=== PATIENT | male | born 1945 | race Caucasian/White ===

== ENCOUNTER 2020-11-12 17:54 | Emergency (ER) | payer MEDICARE, SELFPAY ==
[2020-11-12] VITALS (12 sets, daily range): BP systolic 94–130; BP diastolic 55–79; PULSE 58–88; RESP 15–18; TEMP 36.6–37; O2SAT 95–97; BMI 27.8
--- NOTE | 2020-11-12 17:57 | HMH.EDGENADL ---
ED Disposition Clinical Impression: Ankle pain Qualifiers: Chronicity: acute Laterality: left Qualified Code(s): M25.572 - Pain in left ankle and joints of left foot Disposition: Still a Patient Condition on Discharge: Good Instructions: DI for Acute Pain -- Adult Referrals: Pascual Anaya [Primary Care Provider] - - Critical Care Critical Care Time: No Attestation: On , the high probability of a clinically significant, sudden or life threatening deterioration of the following system(s) required my full and direct attention, intervention and personal management. The time I documented below is in addition to time spent performing reported procedures but includes the following listed in this critical care notation. Medical Decision Making - Medical Records Medical records reviewed: Yes: I reviewed the patient's medical records. - Kenny Inquiry Pt receiving controlled substance: Yes Kenny was queried for this patient: No Reason not queried -: Emergent pt cond-no time Risks and benefits of using a controlled substance: were discussed with pt by me Vital Signs: 11/12/20 17:58 Temperature 98.6 F Temperature Source Oral Pulse Rate [Left Radial] 75 Respiratory Rate 18 Blood Pressure [Left Arm] 124/71 Blood Pressure Mean [Left Arm] 88 Blood Pressure Source [Left Arm] Automatic Cuff Blood Pressure Position [Left Arm] Sitting 02 Sat by Pulse Oximetry 97 Oxygen Delivery Method Room Air - Lab Data Lab Results 11/12/20 18:35: WBC 82.1 H*, RBC 3.88 L, Hgb 14.0 L, Hct 43.8, MCV 113.0 H, MCH 36.0 H, MCHC 31.9, RDW 14.4, Plt Count 155, MPV 8.6, Neut % (Auto) 13.1 L, Lymph % (Auto) 85.9 H, [place] % (Auto) 0.5 L, Eos % (Auto) 0.0 L, Baso % (Auto) 0.5, Neut # (Auto) 10.8 H, Lymph # (Auto) 70.5 H, [place] # (Auto) 0.4, Eos # (Auto) 0.0, Baso # (Auto) 0.4 H, Total Counted 100, Neutrophils % (Manual) 5 L, Band Neutrophils % 3.0, Lymphocytes % (Manual) 90 H, Monocytes % (Manual) 2, Platelet Estimate Normal, Hypochromasia 2+, Microcytosis 3+, ESR 49 H 11/12/20 18:35: Sodium 131 L, Potassium 4.4, Chloride 95 L, Carbon Dioxide 26, Anion Gap 14.4, BUN 25 H, Creatinine 1.00, Estimated Creat Clear 68, Estimated GFR 73, Est GFR ( Amer) 88, Glucose 324 H, Calcium 9.6, Total Bilirubin 1.3, AST 59, ALT 63, Alkaline Phosphatase 97, C-Reactive Protein 88.7 H, Total Protein 7.1, Albumin 4.1, Globulin 3.0, Albumin/Globulin Ratio 1.4 11/12/20 18:35: SARS-CoV-2 IgG Ab (Rapid) Negative, SARS-CoV-2 IgM Ab (Rapid) Negative 11/12/20 19:05: Lactate 1.3 Result diagrams: 11/12/20 18:35 11/12/20 18:35 Orders (Tests/Meds): ED MEDICATIONS Discontinued Medications Generic Name Dose Route Start Last Admin Trade Name Freq PRN Reason Stop Dose Admin Morphine Sulfate 4 mg 11/12/20 18:23 11/12/20 18:38 Morphine 4mg/Ml Syringe IV 11/12/20 18:24 4 mg ONCE ONE Administration Ondansetron HCl 4 mg 11/12/20 18:23 11/12/20 18:38 Ondansetron 4mg/2ml Vial IV 11/12/20 18:24 4 mg ONCE ONE Administration ORDERS Category Date Time Status CT ankle LT w con Stat Cat Scan 11/12/20 20:00 Ordered XR ankle LT 2V Stat Exams 11/12/20 18:10 Taken XR foot LT 2V Stat Exams 11/12/20 18:10 Taken Peripheral Smear Review Routine Lab 11/12/20 18:35 Received Blood Culture Stat Micro 11/12/20 19:05 Received Medical Decision Narrative: Patient resents the emergency department with left ankle/foot pain. Working diagnosis of gout with PCP 3 to 4 days ago. Patient taking colchicine and steroids without much improvement. IV morphine with Zofran will be given for pain control. Patient does have some blanching erythema noted to his left foot. He has no systemic signs of illness. Does have active range of motion and passive range of motion intact. Infectious process considered x-rays will be obtained. Basic lab work including inflammatory markers will also be obtained for further evaluation. No history of trauma but x-rays will also h
--- NOTE | 2020-11-12 18:10 | XR_ITS ---
PROCEDURE: CR XR FOOT LT 2V CR XR ANKLE LT 2V Referring Doctor: Esteban Aly Patient Age:75Y CLINICAL INDICATION: left foot and ankle pain with history of gout overlying rash COMPARISON: CR XR ANKLE LT 2V from 11/12/2020 FINDINGS: --LEFT FOOT 3 view: AP lateral and oblique nonweightbearing No acute fracture or dislocation. No lytic or blastic change. There is normal mineralization. The joint spaces are well-preserved only scant narrowing at the IP joints of the toes; borderline narrowing with mild sclerosis about the 1st MTP joint. The metatarsals intact, tarsals satisfactory but Moderate/generous accessory ossicles at the medial aspect of the navicular (os navicular) noted but no sclerosis or reactive changes here on plain film but There is soft tissue swelling edema seen throughout the forefoot. With perhaps more pronounced swelling overlying the 5th MTP joint laterally. But no soft tissue calcifications evident --LEFT ANKLE 3 view: AP lateral oblique, nonweightbearing . No fracture evident nor dislocation at left ankle . Ankle joint is intact; dome of talus intact. Medial, lateral and posterior malleolus intact. Moderate spurring at the insertion of Achilles tendon with trace plantar calcaneal spur.. Soft tissue swelling is most evident medially the views overlying the medial malleolus and the medial mid and hindfoot. IMPRESSION: No fracture nor dislocation at the left ankle nor left foot Soft tissue swelling throughout the left foot but no soft tissue calcifications (no additional findings specific to gout) Soft tissue edema/swelling due to be more focal-laterally overlying 5th MTP joint; as well as overlying medial aspect midfoot correlation required Dictated by: Alpesh Street MD 11/13/2020 06:[address] MD in [place] 11/13/2020 06:19
--- NOTE | 2020-11-12 18:21 | PC.NURSE ---
pt to xray
[2020-11-12 18:52] LABS: Basophils # 0.4 K/mm3 (0-0.2); Basophils % 0.5 % (0.1-2.0); Hematocrit 43.8 % (42.0-52.0); Lymphocytes # 70.5 K/mm3 (0.7-4.5); Lymphocytes % 85.9 % (10-50); Mean Corpuscular HGB Conc 31.9 g/dL (31.8-35.4); Mean Platelet Volume 8.6 fl (7.4-10.4); Monocytes # 0.4 K/mm3 (0.1-1.0); Monocytes % 0.5 % (1.7-9.3); Neutrophils # 10.8 K/mm3 (1.8-7.8); Platelet Count 155 K/mm3 (142-424); Red Blood Count 3.88 M/mm3 (4.60-6.20); Red Cell Distribution Width 14.4 % (11.5-17.5)
[2020-11-12 18:57] LABS: Alanine Aminotransferase 63 U/L (12-78); Albumin Level 4.1 g/dl (3.5-5.0); Albumin/Globulin Ratio 1.4 (1.1-1.8); Alkaline Phosphatase 97 U/L (38-126); Anion Gap 14.4 mEq/L (5-15); Aspartate Amino Transferase 59 U/L (17-59); Bilirubin,Total 1.3 mg/dl (0.2-1.3); Blood Urea Nitrogen 25 mg/dl (9-20); Calcium 9.6 mg/dl (8.4-10.2); Carbon Dioxide 26 mmol/L (22.0-30.0); Chloride 95 mmol/L (98-107); Creatinine Clearance Estimated 68 mL/min (50-200); Estimated Glomerular Filt Rate 73 ml/min (>60); GFR (African American) 88 ML/MIN (>60); Glucose 324 mg/dl (74-100); Potassium 4.4 mmoL/L (3.5-5.1); Sodium 131 mmol/L (136-145); Total Protein,Serum 7.1 g/dl (6.3-8.2)
[2020-11-12 18:59] LABS: Neutrophils % 13.1 % (37.0-80.0); White Blood Count 82.1 K/mm3 (4.8-10.8)
[2020-11-12 19:00] LABS: MANUAL DIFFERENTIAL MANUAL DIFFERENTIAL (MANUAL DIFF)
[2020-11-12 19:03] LABS: C-Reactive Protein 88.7 mg/L (0-4)
--- NOTE | 2020-11-12 19:08 | PC.NURSE ---
report given to kimberlyrn
[2020-11-12 19:22] LABS: Hypochromasia 2+; Lymphocytes % 90 % (10-50); Microcytosis 3+; Monocytes % 2 % (2-9); Neutrophils % 5 % (42-76); Platelet Estimate Normal; Total Cells Counted 100
[2020-11-12 19:25] LABS: Erythrocyte Sedimentation Rate 49 mm/hr (0-20)
[2020-11-12 19:35] LABS: Lactic Acid 1.3 mmol/L (0.7-2.1)
[2020-11-12 19:45] LABS: Coronavirus 19 IgG Antibody Negative (Negative); Coronavirus 19 IgM Antibody Negative (Negative)
--- NOTE | 2020-11-12 20:00 | CT_ITS ---
PROCEDURE: CT ANKLE LT W CON Referring Doctor: Esteban Aly Patient Age:75Y CLINICAL HISTORY: L rema pain (r/o septic joint) left ankle pain and swelling for 5 days. Left ankle pain and swelling rule out septic joint COMPARISON: Plain films of ankle and foot from today from today utilized for comparison TECHNIQUE: 100 cc of Isovue 370 rapid bolus followed by 40 mL 0 normal saline bolus. Thin-section helical axial images obtained with thickened axial sagittal and coronal refor reformatted images on independent CT workstation s. All CT scans at the facility use one or more dose reduction, viz: automated exposure control, ma/kV adjustment per patient size (including targeted exams where dose is matched to indication, i.e. head), or iterative reconstruction technique. FINDINGS: The images include ankle and majority of the foot a excluding tips of the toes. Osseous structures appear intact at the ankle and and visualized portions of the foot. No erosive or destructive changes. Normal fat at the sub talar joint. Upper normal fluid the ankle joint which extends posteriorly but no anterior bulging of fluid from ankle joint. No destructive or erosive changes of bone evident. Calcaneus intact with small 6 mm plantar calcaneal spur;; and 7 mm spurring at insertion of the Achilles tendon There is edema and swelling throughout the foot. It appears fairly generalized on CT with no unique focal area of prominent swelling. Nor do I see any evidence of calcifications or findings of unique to gout high a: No punched-out lesions or soft tissue calcifications of such. The accessory ossicles upon the medial aspect navicular appear well corticated and intact. The the joint spaces appear well maintained and intact at the foot of no articular erosions the evident . No evidence of osteomyelitis. No findings of a prominent joint effusion/or periarticular erosions to suggest septic joint by CT There seems to be fairly good enhancement of venous structures with no obvious gross thrombosis. Overall there seems to be since fairly good vascular perfusion of the foot although this study demonstrates enhancements of veins more so than the arteries (as the delayed was designed to enhancing inflamed tissues). No radiopaque foreign bodies are evident either IMPRESSION: No acute fracture. No evidence of osteomyelitis. No significant joint effusion or evidence of septic joint by CT Diffuse edema and soft tissue swelling at the foot. No soft tissue density/calcifications nor punched-out lesions to support gout radiographically Dictated by: Alpesh Street MD 11/13/2020 08:[address] MD in [place] 11/13/2020 08:57
[2020-11-12 20:53] LABS: Procalcitonin 0.221 ng/mL (0.0-2.0)
[2020-11-14 19:27] LABS: Peripheral Smear Review Scanned Result
== END 2020-11-12 23:17 | disposition home or self-care (01) ==
PROVIDERS: Emergency Medicine; Emergency Provider Emergency Medicine; PCP Pediatrics
DX: L03.116 Cellulitis of left lower limb (principal); C91.10 Chronic lymphocytic leukemia of B-cell type not having achieved remission; Z01.84 Encounter for antibody response examination; E11.65 Type 2 diabetes mellitus with hyperglycemia; I10 Essential (primary) hypertension; I48.91 Unspecified atrial fibrillation; Z79.899 Other long term (current) drug therapy
CPT/HCPCS: 73600; 73620; 73701; 80053; 83605; 84145; 85007; 85025; 85651; 86140; 86328; 87040; 87077; 87186; 96374; 96375; 99284; J2405; Q9967

== ENCOUNTER 2023-08-31 19:46 | Emergency (ER) | payer MEDICARE, SELFPAY ==
[2023-08-31] VITALS (9 sets, daily range): BP systolic 75–103; BP diastolic 45–64; PULSE 78–97; RESP 21–26; TEMP 36.7; O2SAT 91–100; BMI 30.2
--- NOTE | 2023-08-31 19:59 | ECG_ITS ---
APPROVED REPORT Exam: Resting ECG HR:91 bpm ECG Measurements Heart Rate 91 AXES QRSd 91 QRS 59 QT 395 T 169 QTc 443 Conclusion ATRIAL FIBRILLATION SEPTAL MYOCARDIAL INFARCTION , OF INDETERMINATE AGE [40+ ms Q WAVE IN V1/V2] ST DEVIATION AND MODERATE T-WAVE ABNORMALITY, CONSIDER ANTEROLATERAL ISCHEMIA [-0.1+ mV T-WAVE IN V3-V6] ABNORMAL ECG UNCONFIRMED REPORT Electronically signed by : Cristian Cantor MD 09/01/2023 17:22:26
--- NOTE | 2023-08-31 20:14 | XR_ITS ---
PROCEDURE INFORMATION: Exam: XR Chest Exam date and time: 08/31/2023 8:14 PM Age: 78 years old Clinical indication: Other: Hypotension, pneumonia; Additional info: Pneumonia hypotension TECHNIQUE: Imaging protocol: Radiologic exam of the chest. Views: 2 views. COMPARISON: No relevant prior studies available. FINDINGS: Lungs: Curvilinear opacity at the periphery of the right midlung is probably scarring or atelectasis. No pulmonary consolidation. Pleural spaces: Mild right lateral pleural thickening and mild blunting of both costophrenic sulci could be due to small pleural effusions or pleural scarring. Heart/Mediastinum: Normal. No cardiomegaly. Vasculature: Mildly atherosclerotic thoracic aorta. Bones/joints: Status post sternotomy. [id number] thoracic spine degenerative change. IMPRESSION: 1. Curvilinear opacity at the periphery of the right midlung is probably scarring or atelectasis. No pulmonary consolidation. 2. Mild right lateral pleural thickening and mild blunting of both costophrenic sulci could be due to small pleural effusions or pleural scarring.
--- NOTE | 2023-08-31 20:23 | PC.NURSE ---
patient gone to XRay at this time.
[2023-08-31 20:24] LABS: VBG Base Excess -9.3 mmol/L (-2.4-2.3); VBG HCO3 16.9 mmol/L (23-30); VBG Oxygen Saturation 87.2 % (50-70); VBG PCO2 33.8 mmol/L (35-51); VBG PH 7.32 mmol/L (7.31-7.41); VBG PO2 60.7 mmol/L (28-40); VBG Total CO2 17.9 mmol/L (23-27)
[2023-08-31 20:26] LABS: Basophils # 0.2 K/mm3 (0-0.2); Basophils % 0.4 % (0.1-2.0); Hematocrit 35.9 % (42.0-52.0); Hemoglobin 11.9 g/dL (14.1-18.0); Lymphocytes # 44.6 K/mm3 (0.7-4.5); Lymphocytes % 91.2 % (10-50); Mean Corpuscular HGB Conc 33.2 g/dL (31.8-35.4); Mean Corpuscular Volume 117.6 fl (80-94); Mean Platelet Volume 9.1 fl (7.4-10.4); Monocytes # 0.2 K/mm3 (0.1-1.0); Monocytes % 0.4 % (1.7-9.3); Neutrophils # 3.9 K/mm3 (1.8-7.8); Platelet Count 81 K/mm3 (142-424); Red Blood Count 3.05 M/mm3 (4.60-6.20)
--- NOTE | 2023-08-31 20:28 | HMH.EDGENADL ---
Discharge Plan Disposition Chief Complaint: Shortness of Breath/Dyspnea Prescriptions Prescriptions: No Action Unobtainable Referrals Follow up/Referrals: Pascual Anaya [Primary Care Provider] - See instructions Stand Alone Forms Stand Alone Forms: Transfer Record - ED Discharge ED Provider: Davidson Salamanca General Adult HPI General Chief complaint: Shortness of Breath/Dyspnea Stated complaint: Shortness of air Time Seen by Provider: 08/31/23 19:50 Mode of Arrival: EMS Source of Information: Patient and EMS Limitations: No Limitations Description of Symptoms (Recalled from ER Triage Doc. by RN): 78 M presents from home via EMS for worsening shortness of air r/t 5 days of walking pneumonia. Patient is on oral antibiotics and steroids from his PCP. EMS reports 90% on RA, +wheezing, and systolic BP of 80. EMS administered 1 DuoNeb and 300mL of NS. Sat improved to 97% on RA and systolic to 100. History of Present Illness HPI narrative: Patient is a 78-year-old male with past medical history of ACS status post stenting, previous CABG who presents emergency department for evaluation of weakness. Patient states that he was diagnosed with walking pneumonia earlier this week with shortness of breath and was discharged on oral antibiotic for which she has been compliant but is unknown what name it is. He has had progressive weakness over the last 48 hours causing him to present here for continued evaluation. Patient denies significant chest pain, there is mild associated shortness of breath, no cough. He has had multiple episodes of nonbloody diarrhea. No new medications. No other acute complaints at this time. Related Data Home Medications Medication Instructions Recorded Confirmed Unobtainable 08/31/23 08/31/23 Allergies Allergy/AdvReac Type Severity Reaction Status Date / Time No Known Allergies Allergy Verified 11/12/20 18:17 [facility] Disclaimer: The information contained in this section may have been updated after the patient was seen, as this information can be updated by other users. Medical History (Updated 08/31/23 @ 21:08 by Nicholas Lowe RN) Atrial fibrillation CLL (chronic lymphocytic leukemia) Diabetes HTN (hypertension) Myocardial infarct, old Surgical History (Updated 08/31/23 @ 21:08 by Nicholas Lowe RN) History of open heart surgery Hx of heart artery stent Family History (Updated 08/31/23 @ 21:08 by Nicholas Lowe RN) Other No significant family history Social History (Updated 08/31/23 @ 21:05 by Nicholas Lowe RN) Smoking Status: Never smoker alcohol intake: former current occupational status: retired Travel in the last 8 weeks: None ROS Obtained: Yes Systems reviewed as appropriate & no additional complaints except as documented Physical Exam General General appearance: alert Head Head exam: atraumatic and normocephalic Eye Eye exam: Present PERRL and EOMI ENT ENT exam: Present mucous membranes moist Neck Neck exam: Present normal inspection Chest Chest inspection: Present normal inspection and symmetric chest wall rise Respiratory Respiratory exam: Present respiratory distress, prolonged expiratory phase and other (Coarse breath sounds bilaterally) Cardiovascular Cardiovascular exam: Present regular rate and normal rhythm Abdominal Exam Abdominal exam: Present soft; Absent tenderness Extremities Exam Extremities exam: Present normal inspection and other (No pitting edema) Neurological Exam Neurological exam: Present alert Psychiatric Psychiatric exam: Present normal affect Skin Skin exam: Present warm and dry Medical Decision Making Kenny Inquiry Pt receiving controlled substance: No Vital Signs: 08/31/23 19:46 08/31/23 20:52 08/31/23 20:52 Temperature 98.1 F Temperature Source Oral Pulse Rate 81 78 Pulse Rate [Left] 84 Respiratory Rate 21 Blood Pressure Blood Pressure [Left Arm] 75/51 L
[2023-08-31 20:33] LABS: Alanine Aminotransferase 33 U/L (12-78); Albumin Level 3.8 g/dl (3.5-5.0); Alkaline Phosphatase 69 U/L (38-126); Anion Gap 22.8 mEq/L (5-15); Aspartate Amino Transferase 64 U/L (17-59); Bilirubin,Total 0.6 mg/dl (0.2-1.3); Blood Urea Nitrogen 17 mg/dl (9-20); Calcium 7.7 mg/dl (8.4-10.2); Carbon Dioxide 18 mmol/L (22.0-30.0); Chloride 97 mmol/L (98-107); Creatinine Clearance Estimated 61 mL/min (50-200); Estimated Glomerular Filt Rate 82 ml/min (>60); GFR (African American) 99 ML/MIN (>60); Globulin 1.9 g/dL (1.3-3.2); Glucose 163 mg/dl (74-100); Sodium 135 mmol/L (136-145); Total Protein,Serum 5.7 g/dl (6.3-8.2); White Blood Count 48.9 K/mm3 (4.8-10.8)
--- NOTE | 2023-08-31 20:33 | PC.NURSE ---
Critical results called to Jose Angel Diaz, WBC 48.9 by Nigel
[2023-08-31 20:35] LABS: MANUAL DIFFERENTIAL MANUAL DIFFERENTIAL (MANUAL DIFF)
[2023-08-31 20:38] LABS: Lactic Acid 8.4 mmol/L (0.7-2.1); Potassium 2.8 mmoL/L (3.5-5.1)
--- NOTE | 2023-08-31 20:40 | ECG_ITS ---
APPROVED REPORT Exam: Resting ECG HR:85 bpm ECG Measurements Heart Rate 85 AXES QRSd 101 QRS 58 QT 437 T 254 QTc 479 Conclusion [address] F[address] DEVIATION AND MODERATE T-WAVE ABNORMALITY, but artifact limits interpretation ABNORMAL ECG UNCONFIRMED REPORT Electronically signed by : Cristian Cantor MD 09/01/2023 17:23:05
[2023-08-31 20:43] LABS: NT Pro Brain Natriuretic Pep. 3920 pg/mL (0-450)
[2023-08-31 20:46] LABS: Troponin I < 0.01 ng/ml (0.00-0.034)
[2023-08-31 21:04] LABS: Lymphocytes % 88 % (10-50); Neutrophils % 12 % (42-76); Platelet Estimate Slight Decrease; Total Cells Counted 100
[2023-08-31 21:07] LABS: Macrocytosis 2+
--- NOTE | 2023-08-31 21:07 | PC.NURSE ---
PC placed to Nigel RomeoMorgan spoke with Rere, hospitalist will be paged and call returned. notified
--- NOTE | 2023-08-31 21:16 | PC.NURSE ---
received return call from hospitalist who is covering for Dr Quinones
--- NOTE | 2023-08-31 21:19 | PC.NURSE ---
waiting on return call for need for icu status bed
[2023-08-31 21:21] LABS: T4 (Thyroxine) 10.8 ug/dl (5.53-11.0)
[2023-08-31 21:33] LABS: Coronavirus 19, PCR Not Detected (NotDetected); Influenza A, PCR Not Detected (NotDetected); Influenza B, PCR Not Detected (NotDetected)
[2023-08-31 21:35] LABS: Thyroid Stimulating Hormone 0.72 uIU/mL (0.465-4.68)
--- NOTE | 2023-08-31 21:55 | PC.NURSE ---
Report called to YASMIN Lord at [facility]. [phone]. Room 9354
--- NOTE | 2023-08-31 21:56 | PC.NURSE ---
EMS notified of need for transfer to [facility]
== END 2023-08-31 22:38 | disposition short-term general hospital (02) ==
PROVIDERS: Emergency Provider Emergency Medicine; PCP Pediatrics
DX: A41.9 Sepsis, unspecified organism (principal); J18.9 Pneumonia, unspecified organism; I95.89 Other hypotension; E87.6 Hypokalemia; R94.31 Abnormal electrocardiogram [ECG] [EKG]; R06.02 Shortness of breath; R53.1 Weakness; C91.10 Chronic lymphocytic leukemia of B-cell type not having achieved remission; I11.9 Hypertensive heart disease without heart failure; E11.9 Type 2 diabetes mellitus without complications; Z95.1 Presence of aortocoronary bypass graft
CPT/HCPCS: 71046; 80053; 82803; 83605; 83880; 84436; 84443; 84484; 85007; 85025; 87040; 87636; 93005; 96365; 96366; 96367; 99291